=== PATIENT | male | born 1955 | race Caucasian/White ===

== ENCOUNTER 2021-12-22 15:18 | Inpatient (IN) | payer MEDICARE, OTHER ==
[~2021-12-22 15:18] MED LIST: Iopamidol-370 76% 500 ML 1 ML ONE
[2021-12-22 17:12] LABS: #Monocytes 0.8 thou/uL (0.11-0.59); #Neutrophils 7.5 thou/uL (1.40-6.50); %Basophils 0.4 % (0.0-1.0); %Eosinophils 0.3 % (0.0-10.0); %Lymphocytes 10.3 % (21.0-51.0); %Monocytes 8.8 % (0.0-10.0); %Neutrophils 80.2 % (42.0-75.0); Hemoglobin 15.6 g/dL (14.0-18.0); Mean Corpuscular HGB CONC 33.6 g/dL (32.0-36.0); Mean Corpuscular Hemoglobin 31.8 pg (27.0-31.0); Mean Corpuscular Volume 94.6 fL (78.0-98.0); Mean Platelet Volume 6.1 fL (7.4-10.4); Platelet Count 333 thou/uL (130-400); RBC Distribution Width 10.9 % (11.5-14.5); Red Blood Cell (RBC) Count 4.91 mill/uL (4.70-6.10); White Blood Cell (WBC) Count 9.4 thou/uL (4.8-10.8)
[2021-12-22 17:29] LABS: ALT (SGPT) 17 U/L (8-55); AST (SGOT) 19 U/L (5-34); Albumin 4.6 g/dL (3.4-4.8); Alkaline Phosphatase 77 U/L (40-110); Anion Gap 14 mmol/L (10-20); BUN (Urea Nitrogen) 6 mg/dL (8.4-25.7); Calc. Creatinine Clearance 0 mL/min (70-130); Calcium 9.2 mg/dL (7.8-10.44); Carbon Dioxide 24 mmol/L (23-31); Chloride 85 mmol/L (98-107); Globulin 2.7 g/dL (2.4-3.5); Glucose 112 mg/dL (80-115); Potassium 4.6 mmol/L (3.5-5.1); Protein, Total 7.3 g/dL (5.8-8.1)
[2021-12-22 17:37] LABS: Sodium 118 mmol/L (136-145)
[2021-12-22 19:27] LABS: Bacteria/HPF None Seen HPF (None Seen); Bilirubin Negative (Negative); Blood, Urine 1+ (Negative); Clarity Clear (Clear); Glucose, Urine (Dipstick) 70 mg/dL (Negative); Ketone, Urine Trace mg/dL (Negative); Leukocyte Negative Leu/uL (Negative); Nitrite Negative (Negative); Protein, Urine (Dipstick) Negative (Neg-Trace); RBC/HPF 0-3 HPF (0-3); Specific Gravity, Urine 1.005 (1.002-1.036); Squamous Epithelial None Seen HPF (0-3); Urobilinogen Normal mg/dL (Less than 2); WBC/HPF None Seen HPF (0-3); pH, Urine 7.5 (5.0-9.0)
[2021-12-22] MEDS ORDERED: Ondansetron PF 4 MG/2 ML Vial IVP PRN (23:30)
[2021-12-22] MEDS ORDERED: HYDROcodone/Acetaminophen 7.5/325 mg Tablet PO PRN (23:30)
[2021-12-22] MEDS ORDERED: Morphine 2 MG/ML VIAL SLOW IVP PRN (23:35)
[2021-12-22 23:55] LABS: Anion Gap 13 mmol/L (10-20); BUN (Urea Nitrogen) 4 mg/dL (8.4-25.7); Calc. Creatinine Clearance 0 mL/min (70-130); Calcium 9.4 mg/dL (7.8-10.44); Carbon Dioxide 23 mmol/L (23-31); Chloride 90 mmol/L (98-107); Glucose 110 mg/dL (80-115); Potassium 3.6 mmol/L (3.5-5.1); Sodium 122 mmol/L (136-145); Uric Acid Less than 2.0 mg/dL (3.5-7.2)
[2021-12-22 23:58] LABS: Hemoglobin 15.8 g/dL (14.0-18.0)
[2021-12-23 00:48] VITALS: BMI 27.3
[2021-12-23] MEDS: Sodium Chloride 0.9% 1,000 ML IV SCH ×2 (01:00→10:04)
[2021-12-23 06:22] LABS: #Basophils 0.1 thou/uL (0.0-0.2); #Lymphocytes 1.3 thou/uL (1.20-3.40); #Neutrophils 5.4 thou/uL (1.40-6.50); %Basophils 0.8 % (0.0-1.0); %Eosinophils 0.5 % (0.0-10.0); %Lymphocytes 16.4 % (21.0-51.0); %Monocytes 12.7 % (0.0-10.0); %Neutrophils 69.7 % (42.0-75.0); Hemoglobin 14.9 g/dL (14.0-18.0); Mean Corpuscular HGB CONC 34.5 g/dL (32.0-36.0); Mean Corpuscular Hemoglobin 32.6 pg (27.0-31.0); Mean Corpuscular Volume 94.5 fL (78.0-98.0); Mean Platelet Volume 6.1 fL (7.4-10.4); Platelet Count 309 thou/uL (130-400); RBC Distribution Width 10.9 % (11.5-14.5); Red Blood Cell (RBC) Count 4.58 mill/uL (4.70-6.10); White Blood Cell (WBC) Count 7.8 thou/uL (4.8-10.8)
[2021-12-23 06:46] LABS: Albumin 4.3 g/dL (3.4-4.8); Anion Gap 11 mmol/L (10-20); BUN (Urea Nitrogen) 5 mg/dL (8.4-25.7); BUN/Creatinine Ratio 7.14; Calc. Creatinine Clearance 127 mL/min (70-130); Carbon Dioxide 27 mmol/L (23-31); Chloride 92 mmol/L (98-107); Glucose 101 mg/dL (80-115); Phosphorus 3.5 mg/dL (2.3-4.7); Potassium 3.6 mmol/L (3.5-5.1); Sodium 126 mmol/L (136-145)
[2021-12-23 07:30] LABS: Potassium, Urine 10.1 mmol/L
[2021-12-23] MEDS: Famotidine 20 MG TAB PO SCH ×2 (08:01→21:25)
[2021-12-23] MEDS: Enoxaparin Sodium 40 MG/0.4 ML SYRINGE SC SCH (08:02)
[2021-12-23] MEDS: Acetaminophen 325 MG TAB PO PRN (08:05)
[2021-12-23 15:14] LABS: Anion Gap 11 mmol/L (10-20); BUN (Urea Nitrogen) 9 mg/dL (8.4-25.7); Calc. Creatinine Clearance 115 mL/min (70-130); Calcium 8.5 mg/dL (7.8-10.44); Carbon Dioxide 25 mmol/L (23-31); Chloride 94 mmol/L (98-107); Glucose 95 mg/dL (80-115); Potassium 3.7 mmol/L (3.5-5.1); Sodium 126 mmol/L (136-145)
[2021-12-23] MEDS: hydrALAZINE 20 MG/ML VIAL SLOW IVP PRN (18:03)
[2021-12-23] MEDS: Zolpidem Tartrate 5 MG TAB PO PRN (21:42)
[2021-12-23 22:15] LABS: Potassium 3.3 mmol/L (3.5-5.1)
[2021-12-24 07:31] LABS: #Eosinphils 0.1 thou/uL (0.0-0.7); #Lymphocytes 1.3 thou/uL (1.20-3.40); #Neutrophils 5.2 thou/uL (1.40-6.50); %Basophils 0.6 % (0.0-1.0); %Eosinophils 0.9 % (0.0-10.0); %Lymphocytes 17.1 % (21.0-51.0); %Monocytes 13.4 % (0.0-10.0); %Neutrophils 68.1 % (42.0-75.0); Hemoglobin 15.3 g/dL (14.0-18.0); Mean Corpuscular HGB CONC 33.7 g/dL (32.0-36.0); Mean Corpuscular Hemoglobin 32.3 pg (27.0-31.0); Mean Platelet Volume 6.1 fL (7.4-10.4); Platelet Count 326 thou/uL (130-400); RBC Distribution Width 11.1 % (11.5-14.5); Red Blood Cell (RBC) Count 4.73 mill/uL (4.70-6.10); White Blood Cell (WBC) Count 7.6 thou/uL (4.8-10.8)
[2021-12-24 07:51] LABS: Anion Gap 12 mmol/L (10-20); BUN (Urea Nitrogen) 8 mg/dL (8.4-25.7); Calc. Creatinine Clearance 109 mL/min (70-130); Calcium 9.2 mg/dL (7.8-10.44); Carbon Dioxide 25 mmol/L (23-31); Chloride 92 mmol/L (98-107); Glucose 101 mg/dL (80-115); Potassium 3.5 mmol/L (3.5-5.1); Sodium 125 mmol/L (136-145)
[2021-12-24] MEDS: Enoxaparin Sodium 40 MG/0.4 ML SYRINGE SC SCH (07:51)
[2021-12-24] MEDS: Famotidine 20 MG TAB PO SCH ×2 (07:51→20:27)
[2021-12-24 08:21] LABS: Magnesium 1.8 mg/dL (1.6-2.6)
[2021-12-24] MEDS: Potassium Chloride 20 MEQ TAB PO SCH ×2 (08:34→11:22)
[2021-12-24] MEDS: Sodium Chloride 1 GM TAB PO SCH ×3 (08:34→20:27)
[2021-12-24] MEDS ORDERED: Potassium Chloride 20 MEQ TAB PO SCH (09:00)
[2021-12-24] MEDS: Bisacodyl 5 MG TAB PO PRN (13:33)
[2021-12-24] MEDS: Zolpidem Tartrate 5 MG TAB PO PRN (23:33)
[2021-12-24] MEDS: hydrALAZINE 20 MG/ML VIAL SLOW IVP PRN (23:34)
[2021-12-25] MEDS: Bisacodyl 5 MG TAB PO PRN (04:28)
[2021-12-25] MEDS: Sodium Chloride 1 GM TAB PO SCH (08:05)
[2021-12-25] MEDS: Acetaminophen 325 MG TAB PO PRN (08:05)
[2021-12-25] MEDS: Enoxaparin Sodium 40 MG/0.4 ML SYRINGE SC SCH (08:05)
[2021-12-25] MEDS: Famotidine 20 MG TAB PO SCH (08:05)
[2021-12-25 08:11] LABS: Anion Gap 14 mmol/L (10-20); BUN (Urea Nitrogen) 7 mg/dL (8.4-25.7); Calc. Creatinine Clearance 99 mL/min (70-130); Calcium 9.5 mg/dL (7.8-10.44); Carbon Dioxide 23 mmol/L (23-31); Chloride 96 mmol/L (98-107); Glucose 137 mg/dL (80-115); Potassium 3.9 mmol/L (3.5-5.1); Sodium 129 mmol/L (136-145)
[2021-12-25 08:25] VITALS: BP 158/81; TEMP 97.7
[2021-12-25] MEDS ORDERED: Amlodipine 10 MG TAB PO SCH ×2 (09:33→10:30)
[2021-12-26] MEDS ORDERED: Amlodipine 10 MG TAB PO SCH (09:00)
== END 2021-12-25 12:57 | disposition home or self-care (01) | DRG 645 ==
LOC: ERS 15:18 → T4-B 23:17
PROVIDERS: ADMIT Hospitalist; ATTEND Hospitalist
DX: E22.2 Syndrome of inappropriate secretion of antidiuretic hormone (principal); A08.4 Viral intestinal infection, unspecified; Z20.822 Contact with and (suspected) exposure to COVID-19; I10 Essential (primary) hypertension; N40.0 Benign prostatic hyperplasia without lower urinary tract symptoms; E87.6 Hypokalemia; Z79.899 Other long term (current) drug therapy
CPT/HCPCS: 36415; 74177; 80048; 80053; 80069; 81003; 81015; 82274; 83605; 83690; 83735; 83930; 83935; 84133; 84300; 84443; 84484; 84550; 85025; 93005; J0360; J1650; J7050; Q9967; U0003; U0005